=== PATIENT | male | born 1985 | race Caucasian/White ===

== ENCOUNTER 2018-12-05 13:27 | Emergency (ER) | payer MEDICAID ==
[~2018-12-05] VITALS: Ht 167.6 cm; Wt 82.3 kg
[2018-12-05 13:31] VITALS: BP 126/75; PULSE 69; RESP 18; Ht 167.6 cm; Wt 82.3 kg
[2018-12-05] MEDS ORDERED: CARB-155 BOTH EARS (15:18)
--- NOTE | 2018-12-05 15:31 | ERD ---
ER Documentation Chief Complaint Chief Complaint right ear pain x 5 days HPI 33-year-old male presenting with ear fullness of the right side with some muffled hearing. This is been going on for the last 5 days with consistently worsening. He denies any pain. He has not taken medications for the symptoms. He is never had this before. Denies any traumatic injuries. Denies other medical problems. NKDA. Surgical history denies. Social history denies ROS All systems reviewed and are negative except as per history of present illness. Medications Home Meds Active Scripts Carbamide Peroxide* (Debrox*) 6.5% -15 Ml Drops, 10 DROP BOTH EARS BID, #1 EA Prov:VALENTINA GUTIERREZ PA-C 12/05/18 PMhx/Soc Medical and Surgical Hx: pt denies Medical Hx, pt denies Surgical Hx Hx Alcohol Use: No Hx Substance Use: No Hx Tobacco Use: No FmHx Family History: No diabetes, No coronary disease, No other Physical Exam Vitals Vital Signs Date Temp Pulse Resp B/P (MAP) Pulse Ox O2 O2 Flow FiO2 Time Delivery Rate 12/05/18 97.8 69 18 126/75 99 13:31 (92) Physical Exam GENERAL: The patient is well-appearing, well-nourished, in no acute distress HEENT: Atraumatic. Conjunctivae are pink. Pupils equal, round, and reactive to light. There is no scleral icterus. Tympanic membranes obstructed by excessive cerumen impaction. No tragal tenderness. No mastoid tenderness NECK: C-spine is soft and supple. There is no meningismus. There is no cervical lymphadenopathy. CHEST: Clear to auscultation bilaterally. There are no rales, wheezes or rhonchi. HEART: Regular rate and rhythm. No murmurs, clicks, rubs or gallops. Procedures/MDM ER course: Lavage performed in ED. Cerumen removed. MDM: 33-year-old male presenting with fullness to the right ear. Patient has cerumen impaction noted which was removed in the emergency room. I have low suspicion for infectious process. She is discharged with strict ER precautions and told to follow-up with primary care within 1 to 2 days for close evaluation. Patient is told if symptoms change or worsen to return immediately to the ER. All questions answered at discharge Departure Diagnosis: Primary Impression: Cerumen impaction Condition: Stable Patient Instructions: Cerumen Impaction, Home Care Referrals: [facility] YOU HAVE RECEIVED A MEDICAL SCREENING EXAM AND THE RESULTS INDICATE THAT YOU DO NOT HAVE A CONDITION THAT REQUIRES URGENT TREATMENT IN THE EMERGENCY DEPARTMENT. FURTHER EVALUATION AND TREATMENT OF YOUR CONDITION CAN WAIT UNTIL YOU ARE SEEN IN YOUR DOCTORS OFFICE WITHIN THE NEXT 1-2 DAYS. IT IS YOUR RESPONSIBILITY TO MAKE AN APPOINTMENT FOR FOLOW-UP CARE. IF YOU HAVE A PRIMARY DOCTOR --you should call your primary doctor and schedule an appointment IF YOU DO NOT HAVE A PRIMARY DOCTOR YOU CAN CALL OUR PHYSICIAN REFERRAL HOTLINE AT IF YOU CAN NOT AFFORD TO SEE A PHYSICIAN YOU CAN CHOSE FROM THE FOLLOWING [facility] [address] [facility] [address] [facility] [facility] [address] [facility] [address] [facility] [address] [facility] [facility] [address] Additional Instructions: FOLLOW UP WITH YOUR PRIMARY CARE PHYSICIAN TOMORROW.Return to this facility if you are not improving as expected. VALENTINA GUTIERREZ PA-C Dec 05, 2018 15:31
== END 2018-12-05 15:40 | disposition home or self-care (01) ==
LOC: FTE 13:27
DX: H61.21 Impacted cerumen, right ear (principal)

== ENCOUNTER 2019-02-01 11:57 | Emergency (ER) | payer MEDICAID ==
[~2019-02-01] VITALS: Wt 85.4 kg
[~2019-02-01 11:57] MED LIST: CARB-155 BOTH EARS; OMEP20CA16 PO; ONDA4TAB8 PO
[2019-02-01 12:05] VITALS: BP 126/62; PULSE 69; RESP 18
[2019-02-01] MEDS ORDERED: ONDANSETRON (ODT) 4 MG TAB ODT STA (12:33)
[2019-02-01] MEDS ORDERED: FAMOTIDINE 20 MG TAB PO ONE (13:00)
== END 2019-02-01 12:49 | disposition home or self-care (01) ==
LOC: FTE 11:57
DX: K29.00 Acute gastritis without bleeding (principal)
CPT/HCPCS: Z7502; Z7610; 99283